=== PATIENT | female | born 1935 | race Caucasian/White ===

== ENCOUNTER 2017-12-09 17:42 | Emergency (ER) | payer MEDICARE, MEDICAID ==
[~2017-12-09] VITALS: Ht 157.5 cm; Wt 76.0 kg
[2017-12-09] MEDS ORDERED: LIDOCAINE 1%, 10ML INFIL ONE (19:00)
[2017-12-09] MEDS ORDERED: ETOMIDATE 20 MG/10 ML IVPush ONE (19:00)
[2017-12-09 20:20] VITALS: BP 128/74
[2017-12-09] MEDS ORDERED: BACITRACIN ZINC OINT 500U/GM, 0.9 GM ONE (20:38)
== END 2017-12-09 20:56 | disposition home or self-care (01) ==
LOC: ED 18:30
DX: S01.81XA Laceration without foreign body of other part of head, initial encounter (principal); S01.21XA Laceration without foreign body of nose, initial encounter; W01.198A Fall on same level from slipping, tripping and stumbling with subsequent striking against other object, initial encounter; Y93.01 Activity, walking, marching and hiking; Y92.098 Other place in other non-institutional residence as the place of occurrence of the external cause; Y99.8 Other external cause status
CPT/HCPCS: 12052; 70450; 99284